=== PATIENT | female | born 1995 | race Hispanic/Latino ===

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

== ENCOUNTER 2017-08-28 03:37 | Emergency (ER) | payer OTHER ==
[~2017-08-28] VITALS: Ht 152.4 cm; Wt 53.5 kg
[2017-08-28 04:15] LABS: ABSOLUTE BASOPHIL COUNT 0.1 /CUMM (0.0-0.2); ABSOLUTE EOSINOPHIL COUNT 0.7 /CUMM (0.0-0.7); ABSOLUTE GRANULOCYTE CT 6.6 /CUMM (1.4-6.5); ABSOLUTE LYMPH COUNT 2.1 /CUMM (1.2-3.4); ABSOLUTE MONOCYTE COUNT 0.8 /CUMM (0.10-0.60); BASOPHIL % 0.6 % (0.0-2.0); EOSINOPHIL % 6.9 % (0-5); GRANULOCYTE % 64.3 % (42.2-75.2); MEAN CORPUSCULAR HGB 29.5 PG (27.0-31.0); MEAN CORPUSCULAR HGB CONC 33.8 G/DL (33.0-37.0); MEAN CORPUSCULAR VOLUME 87.4 FL (81.0-99.0); MEAN PLATELET VOLUME 7.7 FL (7.4-10.4); PLATELET COUNT 306 /CUMM (130-400); RBC DISTRIBUTION WIDTH 13.7 % (11.5-14.5); RED BLOOD CELL CT 4.13 /CUMM (4.20-5.40); WHITE BLOOD CELL COUNT 10.3 /CUMM (4.8-10.8)
--- NOTE | 2017-08-28 04:20 | ED INFLUENZA/URI COMPLAINT ---
History of Present Illness General Chief Complaint: General Adult Stated Complaint: VOMITING, COUGH Source: patient, family, old records Exam Limitations: no limitations Vital Signs & Intake/Output Vital Signs & Intake/Output Vital Signs Date Time Temp Pulse Resp B/P B/P Pulse O2 O2 Flow FiO2 Mean Ox Delivery Rate 08/28 0344 98.3 68 18 105/65 06 Allergies Uncoded Allergies: CAT FUR (HIVES/SWELLING 04/14/13) POLLEN (06/15/13) STEROIDS (ANXIETY 04/10/15) Reconcile Medications Albuterol Sulfate (Proventil Hfa) 90 MCG HFA.AER.AD 2 PUF INH Q4 PRN COUGH, WHEEZE Amoxicillin/Potassium Clav (Augmentin 875-125 Tablet) 875 MG-125 MG TABLET 1 TAB PO BID BRONCHITIS Amoxicillin/Potassium Clav (Augmentin 875-125 Tablet) 875 MG-125 MG TABLET 1 TAB PO BID sinusitis Benzonatate (Tessalon Perle) 100 MG CAPSULE 1-2 CAP PO TID COUGH Lorazepam (Ativan) 0.5 MG TAB 1 TAB PO TID PRN ANXIETY NORETHINDRONE-E.ESTRADIOL-IRON (Lo Loestrin Fe 1-10 Tablet) 1MG-10(24) TABLET 1 TAB PO DAILY MENSTRUAL REGULARITY (Reported) Promethazine HCl/Codeine (Prometh-Codein 6.25-10 MG/5 Ml) 6.25 MG-10 MG/5 ML (5 ML) SYRUP 5-10 ML PO Q6P PRN cough Triamcinolone Acetonide (Triamcinolone 0.1% Cream 453 Gm) 0.1 %/453 GM CRM 1 ROVERTO TOP BID PRN ITCH/RASH Triage Note: TRIAGE: PATIENT TO ER FROM HOME W/ MOTHER REPORTING GENERALIZED ABD PAIN W/ NAUSEA/ VOMITTING X 2 DAYS. DRY HEVAING THROUGHOUT TRIAGE. NO PO INTAKE X 1-2 DAYS PER PATIENT. IV EST #20 RIGHT FOREARM. BLOODWORK OBTAINED AND SENT TO LAB ([facility], [facility], [place]). Triage Nurses Notes Reviewed? yes Onset: 2 days Duration: day(s):, continues in ED, getting worse Timing: recent history Severity: moderate, severe Prior Episodes/Possible Cause: illness exposure No Modifying Factors: none Associated Symptoms: cough, facial pain, nasal congestion, nasal drainage, sinus infection, sore throat LMP (ages 10-50): unknown : No Patient currently breastfeeds: No HPI: The patient works at [employer]. 2 days prior to admission she complains of red itchy eyes nasal congestion sore throat productive cough. She denies fever chills nausea vomiting diarrhea abdominal pain chest pain shortness of breath dysuria rash bleeding. Past History Travel History Traveled to [place] past 21 day No Medical History Any Pertinent Medical History? 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 No Review of Systems Review of Systems Constitutional: Reports: see HPI, malaise. EENTM: Reports: see HPI, eye tearing, nasal congestion, throat pain. Respiratory: Reports: see HPI, cough, sputum production. Cardiovascular: Reports: no symptoms. GI: Reports: no symptoms. Genitourinary: Reports: no symptoms. Musculoskeletal: Reports: no symptoms. Skin: Reports: no symptoms. Neurological/Psychological: Reports: no symptoms. Hematologic/Endocrine: Reports: no symptoms. Immunologic/Allergic: Reports: no symptoms. All Other Systems: Reviewed and Negative Physical Exam Physical Exam General Appearance: well developed/nourished, alert, awake, anxious, severe distress Head: atraumatic, normal appearance, tenderness (maxillary and frontal sinus) Eyes: Bilateral: PERRL, EOMI, other (injected). Ears, Nose, Throat: moist mucous membrane, hearing grossly normal, nasal congestion, nasal drainage, pharyngeal erythema Neck: normal inspection, supple, full range of motion, trachea midline, lymphadenopathy (R), lymphadenopathy (L) Respiratory: normal breath sounds, chest non-tender, no respiratory distress, quiet respiration, lungs clear Cardiovascular: regular rate/rhythm, normal peripheral pulses, norml femoral pulses equa Peripheral Pulses: 4+ carotid (R), 4+ carotid (L) Gastrointestinal: normal bowel sounds, soft, non-tender, no organomegaly Back: normal inspection, normal range of motion Extremities: normal inspection, normal capillary refill, normal range of motion, no edema Neurologic/Psych: no motor/sensory deficits, awake, alert, oriented x 3, normal gait, normal mood/affect, wet sander II-XII nml as tested Reflexes: 2+: bicep (R), bicep (L). Skin: intact, normal color Lymphatic: adenopathy Core Measures Sepsis Present: No Sepsis Focused Exam Completed? No Progress Differential Diagnosis: influenza, pneumonia, pharyngitis, sinusitis Plan of Care: Orders Procedure Date/time Status LIPASE 08/28 346 Complete HUMAN BETA HCG SCREEN 08/28 346 Complete COMPREHENSIVE METABOLIC PANEL 08/28 346 Complete CBC WITHOUT DIFFERENTIAL 08/28 346 Complete AMYLASE 08/28 346 Complete Current Medications Sig/Suresh Start time Last Medication Dose Stop Time Status Admin Ampicillin Sodium/ 3,000 MG ONCE ONE 08/28 529 UNVr Sulbactam Sodium 08/28 558 (Unasyn) Sodium Chloride 100 ML (Normal Saline 0.9%) Diphenhydramine HCl 25 MG ONCE ONE 08/28 529 UNVr (Benadryl) 08/28 530 Guaifenesin/Codeine 10 ML ONCE ONE 08/28 529 UNVr Phosphate 08/28 530 (Robitussin AC) Laboratory Tests 08/28/17 0405: CBC w Diff NO MAN DIFF REQ, RBC 4.13 L, MCV 87.4, MCH 29.5, MCHC 33.8, RDW 13.7 , MPV 7.7, Gran % 64.3, Lymphocytes % 20.4 L, Monocytes % 7.8, Eosinophils % 6.9 H, Basophils % 0.6, Absolute Granulocytes 6.6 H, Absolute Lymphocytes 2.1, Absolute Monocytes 0.8 H, Absolute Eosinophils 0.7, Absolute Basophils 0.1 08/28/17 0357: Anion Gap 13, Estimated GFR > 60, BUN/Creatinine Ratio 13.3, Glucose 88, Calcium 9.0, Total Bilirubin 0.3, AST 12 L, ALT 18, Alkaline Phosphatase 58, Total Protein 6.7, Albumin 3.7, Globulin 3.0, Albumin/Globulin Ratio 1.2, Amylase 68, Lipase 35, Total Beta HCG NEGATIVE Diagnostic Imaging: Viewed by Me: Radiology Read. Discussed w/RAD: Radiology Read. CXR Impression: no acute abnormality Initial ED EKG: none Departure Departure Time of Disposition: 0600 Disposition: HOME OR SELF CARE Condition: Stable Clinical Impression Primary Impression: Sinusitis Secondary Impressions: Bronchitis Referrals: Denita PARIS,Marcia Moran (PCP/Family) Departure Forms: Customer Survey General Discharge Information RELEASE- WORK Prescriptions: Current Visit Scripts Amoxicillin/Potassium Clav (Augmentin 875-125 Tablet) 1 TAB PO BID #20 TAB Promethazine HCl/Codeine (Prometh-Codein 6.25-10 MG/5 Ml) 5-10 ML PO Q6P PRN cough #240 ML
--- NOTE | 2017-08-28 05:09 | RADIOLOGY REPORT ---
EXAMINATION: CHEST 2 VIEWS CLINICAL INFORMATION: Productive cough. COMPARISON: February 11, 2016. TECHNIQUE: PA and lateral views of the chest were obtained. FINDINGS: The cardiac silhouette is not enlarged. The mediastinal and hilar contours are unremarkable. There are neither pleural effusions nor pneumothoraces. There are no consolidations. The osseous structures are unremarkable. IMPRESSION: No evidence for acute disease.
[2017-08-28] MEDS ORDERED: PROMETH-CODEIN 65 ML PO (05:29)
[2017-08-28] MEDS ORDERED: AUGMENTIN 875-1 EACH PO (05:29)
[2017-08-28] MEDS ORDERED: BENADRYL ALLERG25 M2 PO (05:34)
[2017-08-28] MEDS ORDERED: PROAIR HFA8.5 GM INH (05:34)
[2017-08-28 05:55] VITALS: BP 112/66
== END 2017-08-28 05:56 ==
LOC: ERH 03:37
PROVIDERS: Emergency Medicine
DX: J32.9 Chronic sinusitis, unspecified (principal); J40 Bronchitis, not specified as acute or chronic; J02.9 Acute pharyngitis, unspecified; R05 Cough
CPT/HCPCS: 1263; 71046; 96374; 96375; J1200; J1885; J2405